=== PATIENT | male | born 1950 | race Caucasian/White ===

== ENCOUNTER → 2017-09-05 | Outpatient (REF) | payer MEDICARE, OTHER | LOC: ZZSENDIN 12:00 | PROVIDERS: ATTEND Urology | DX: C61 Malignant neoplasm of prostate (principal) | CPT/HCPCS: 88305; 88344 ==

== ENCOUNTER 2017-12-24 07:49 | Outpatient (RCR) | payer MEDICARE, OTHER ==
--- NOTE | 2017-10-09 18:24 | ONCOLOGY CONSULTATION ---
EVENT DATE: October 09, 2017 PRIMARY SITE AND HISTOPATHOLOGY Adenocarcinoma of the prostate Radha 3+3=6 carcinoma and Kanaranzi 2+3=5 adenocarcinoma appreciated from the left lateral apex and left apex biopsies ( two of 12 positive core biopsies). Pre-biopsy PSA 7.4 ng/mL drawn on June. STAGE Pending. HISTORY OF PRESENT ILLNESS This is a pleasant 66-year-old gentleman who was referred to me by Dr. Ye to discuss treatment options for recently diagnosed prostate carcinoma. The patient has an appointment at the end of the week to follow up with Dr. Ye to make a final determination as to which option he will pursue. Patient moved to [place] approximately two years ago from [place]. He is a retired building construction foreman. He recently had an initial appointment with Dr. Rodriguez and during that evaluation a PSA was drawn which was elevated at 7.4 ng /mL. This was in mid June. Dr. Ye was able to obtain a prior PSA when the patient was living in [place] through a phone call, and the patient's PSA was 2.0 on October 06, 2014. Therefore this was a significant elevation. The patient was advised to undergo prostate biopsy, which was performed with ultrasound guidance on September 05, 2017. Two positive core biopsies were obtained from the left apex at Radha 5 and Radha 6. Prostate measured 42 mm in height by 48 mm in width x 45 mm in length. Prostate volume is 47 cc. Patient states his voiding function has been stable. He denies any dysuria. He generally does not get up at night. Good control of urination during the day. Patient denies any bone pain. Patient states he is otherwise healthy and generally has not needed to see physicians for anything specifically. He informs me that he would like to discuss radiation therapy options with me today. He has already discussed surgery options, radiation briefly and active surveillance with Dr. Ye, and the pros and cons thereof. He has interest in discussing external beam radiotherapy or prostate brachytherapy as to details , outcomes and side effects. PAST MEDICAL HISTORY Glaucoma. PAST SURGICAL HISTORY Left-sided hernia repair in 2000. FAMILY HISTORY No family history of prostate carcinoma. Negative for carcinoma. CURRENT MEDICATIONS 1. Atenolol one drop b.i.d. 2. Lumigan eyedrops q.day. SOCIAL HISTORY Patient is . He has five children, ages 35-47. Retired building construction foreman. States he has one drink a day, does not smoke. REVIEW OF SYSTEMS No recent weight loss. No cardiovascular, respiratory or GI complaints. AUA score is low at 6. Denies any ROOM CLEANER or bone or muscular issues. PHYSICAL EXAMINATION GENERAL: A pleasant 66-year-old male of tall build. VITAL SIGNS: Height 75 inches, weight 234. BP 170/106, pulse 76, respirations 16, temperature 98.8. HEENT: Exam is unremarkable. LUNGS: Clear bilaterally. HEART: Sounds regular. No audible murmur. ABDOMEN: Soft. No gross organomegaly, mass or tenderness. RECTAL: Exam is deferred since this was performed within the last four weeks. EXTREMITIES: Reveal no edema or cyanosis. NEUROLOGIC: Exam is intact. IMPRESSION Radha 6 adenocarcinoma of the prostate in two of 12 core biopsies. This is in the background of a PSA with doubling time of under one year (rise up from 2.0 to 7.4 in a three-year time frame). PLAN I reviewed therapeutic options with the patient at his request. We specifically went through the exact details on simulation and daily external beam radiotherapy with cone-beam IMRT treatment delivery. This would involve radiation delivery of 72 Gy in 42 fractions with field reductions at 50 Gy and 60 Gy. The alternative treatment option which was reviewed in detail with the patient was the prostate brachytherapy program. That procedure involves two ultrasounds. First ultrasound is done in the OR approximately three to four weeks before the actual procedure. The location of the urethra is noted and imaging is obtained to 5 mm increments through the prostate for radiation planing on a three dimensional system. Palladium-103 seeds would then be placed jointly under direct fluoroscopic and ultrasound guidance with Dr. Ye in an outpatient location. This is typically performed at the hospital. In either situation the patient can experience increased urinary symptoms such as frequency or urgency. Other symptoms include temporary dysuria. Bowel complication such as rectal bleeding is generally 3% or lower, and most frequently related to small telangectasias which may or may not form following treatment. The probability of tumor control would be on the order of 88% to 95 % in five years, would drop another 5% to 10% by 10 years from available literature. The patient stated he would like to think about his options further, and will contact our office next week with his final decision. I told him he could essentially not make a wrong decision in this decision tree. In my opinion he would not need hormone therapy, and if treatment is successful, the PSA should fall to subnormal levels within 12 months. If the patient elects for radiation external oakley radiotherapy, he will need a diagnostic and treatment planning CT scan approximately 10 days prior to starting therapy. Consultation took approximately 90 minutes today, and all questions were answered to the patient's satisfaction. Thank you for the referral and opportunity to discuss therapeutic options with Mr. Nash today. (10/23/17 Patient opted to proceed with primary XRT; images imported for IMRT planning- RT) GAGE
[2017-10-18 11:59] VITALS: BP 163/105
[2017-10-18 12:07] LABS: PLATELET COUNT, AUTOMATED 271 K/uL (150-450)
--- NOTE | 2017-10-18 14:55 | RADIOLOGY IMAGING REPORT ---
FACILITY: [facility] PATIENT NAME: Nickolas Nash : 1950 MR: [id number] V: [id number] EXAM DATE: ORDERING PHYSICIAN: BLOSSOM SOLO TECHNOLOGIST: [place] [facility] [place] Nickolas Nash : 1950 Visit/Account:[id number] Date of Sevice: 10/18/2017 ABDOMEN/PELVIS W/WO CONTRAST HISTORY: Prostate cancer, placement of therapy calloway TECHNIQUE: Axial images acquired through the abdomen/pelvis both with and without IV contrast.. Tony nal and sagittal reformatting also performed. Dose Lowering Technique One of the following dose optimization techniques was utilized in the performance of this exam: Autom ated exposure control; adjustment of the mA and/or kV according to the patient's size; or use of an i terative reconstruction technique. Specific details can be referenced in the facility's radiology C T exam operational policy. CONTRAST: 75 mL Isovue-370 COMPARISON: None. FINDINGS: Visualized lung bases: Negative. Hepatobiliary: Gallbladder is partially contracted which could be related to a recent meal Spleen: Negative. Adrenals: Negative. Pancreas: There is a 1.8 x 1.5 cm irregular hypoattenuating region at the junction of the distal bod y and tail of the pancreas Kidneys ureters and bladder: Negative. Genitalia: Prostate gland is enlarged heterogeneous and impinges upon the floor the urinary bladder GI: There is a large hiatal hernia containing much of the stomach . There is diverticulosis left-si ded colon although no CT evidence of acute diverticulitis Vessels/spaces/nodes: Negative Bones/soft tissues: There are sclerotic densities seen in the right iliac bone, right hip and left i schium. These Could represent bone islands although given the clinical history of prostate cancer os seous metastases not totally excluded Additional findings: None pertinent. IMPRESSION: There is scar density seen in the right iliac bone, right hip and left issue. These could represent bone islands although osseous metastases not totally excluded. If of concern bone scan may be helpfu l. There is a 1.8 x 1.5 cm hypoattenuating region at the junction of the distal body and tail the pancre as. Although this could represent a fatty cleft a pancreatic mass is not ruled out. MR of the pancr eas with and without contrast may be helpful Large hiatal hernia containing much of the stomach Diverticulosis left-sided colon although no CT evidence of acute diverticulitis Report Dictated By: Inna Longo MD at 10/18/2017 2:35 PM Report E-Signed By: Inna Longo MD at 10/18/2017 2:50 PM WSN:[email or web address]
[2017-10-30 08:51] VITALS: BP 173/102
--- NOTE | 2017-11-02 15:46 | RADIOLOGY IMAGING REPORT ---
FACILITY: [facility] [place] PATIENT NAME: Nickolas Nash : 1950 MR: [id number] V: [id number] EXAM DATE: ORDERING PHYSICIAN: BLOSSOM SOLO TECHNOLOGIST: Location: [facility] - [place] Patient: Nickolas Nash : 1950 Visit/Account:[id number] Date of Sevice: 10/30/2017 Exam type: ORBITS FOREIGN BODY 1 VIEW History: Pre-MRI screening Comparison: None. Findings: No radiopaque metallic foreign bodies project over the orbits IMPRESSION: 1. No radiopaque metallic foreign bodies project over the orbits Report Dictated By: Inna Longo MD at 10/30/2017 9:02 AM Report E-Signed By: Inna Longo MD at 10/30/2017 9:03 AM WSN:[email or web address]
--- NOTE | 2017-11-02 15:47 | RADIOLOGY IMAGING REPORT ---
[place] [facility] [place] NAME: Nickolas Nash : 1950 MR: [id number] V: [id number] EXAM DATE: ORDERING PHYSICIAN: BLOSSOM SOLO TECHNOLOGIST: Location: [facility] - [place] Patient: Nickolas Nash : 1950 Visit/Account:[id number] Date of Sevice: 10/30/2017 EXAMINATION: MRI abdomen without IV contrast MRI abdomen with IV contrast MRCP 10/30/2017 9:00 AM HISTORY: Possible pancreatic mass. History of prostate cancer. TECHNIQUE: Multiplanar multisequence imaging of the abdomen was performed including thin slice heavil y T2-weighted MRCP sequencing. 3-D imaging was performed according to protocols developed by the rad iologists and the facility radiology staff. Joint Cutter images are stored on PACS. Contrast: 15 mL of IV MultiHance. COMPARISON STUDIES: CT abdomen and pelvis 10/18/2017 FINDINGS: Gallbladder bile ducts: Phrygian cap at the tip of the gallbladder. No visible cholelithiasis. CBD is just over 2 mm. No focal stricture or irregularity. Liver: Negative Pancreas: 4 mm cystic focus along the posterior inferior aspect of the pancreatic neck. Pancreatic d uct is not dilated. The pancreas at the juncture of body and tail has an unremarkable MR appearance without discrete focal mass or inflammation. There is no edema and peripancreatic fat. Spleen: Incidental small anteroinferior accessory splenule. Adjacent splenule or lobulated margin of the pancreas. Adrenal glands: negative Kidneys / retroperitoneum: negative Bowel / peritoneum / mesenteries: Large hiatal hernia. Vessels: negative Musculoskeletal / Body wall: negative Lymph node assessment: negative Lower chest: negative IMPRESSION: 1. Area of concern in the pancreas at the juncture of the body and tail has an unremarkable MR appea mary ann without discrete mass. There is a subcentimeter cystic focus along the inferior aspect of the pancreatic neck. A benign etiology would be favored but one-year follow-up is recommended to exclude cystic neoplasm. 2. No significant acute finding otherwise. I called report to DEEPA GUZMAN at 10/30/2017 11:42 AM. Report Dictated By: Michael Garcia MD at 10/30/2017 11:10 AM Report E-Signed By: Michael Garcia MD at 10/30/2017 11:42 AM WSN:[email or web address]
[~2017-12-24 07:49] MED LIST: DEXTROSE 5%(*) 100 ML BAG 100 ML IVPB PRN; IOPAMIDOL 76% 75 ML INFUS BTL 75 ML ONE; LIDOCAINE/SOD BICARB 8.4% SYR ID PRN; NS(*) 0.9% 100 ML BAG 100 ML IVPB PRN
[2017-12-24 16:57] VITALS: BP 170/100
== END 2018-01-06 ==
LOC: SPU 07:49
PROVIDERS: ATTEND Radiology Radiation Oncology
DX: Z51.0 Encounter for antineoplastic radiation therapy (principal); C61 Malignant neoplasm of prostate; K44.9 Diaphragmatic hernia without obstruction or gangrene; K57.30 Diverticulosis of large intestine without perforation or abscess without bleeding
CPT/HCPCS: 36415; 74178; 77280; 77290; 77300; 77301; 77336; 77338; 77385; 84153; 85025; G0463; Q9967; 70030; 74183; 82040; 82247; 82310; 82374; 82435; 82565; 82947; 84075; 84132; 84155; 84295; 84450; 84460; 84520; 99203; 99211; A9577; J7050

== ENCOUNTER 2017-12-27 08:25 | Outpatient (RCR) | payer MEDICARE, OTHER | END 2018-01-17 14:14 | disposition home or self-care (01) | LOC: RAON 08:25 | PROVIDERS: ATTEND Radiology Radiation Oncology | DX: Z51.0 Encounter for antineoplastic radiation therapy (principal); C61 Malignant neoplasm of prostate | CPT/HCPCS: 77280; 77336; 77385 ==

== ENCOUNTER 2018-03-19 09:54 | Outpatient (RCR) | payer MEDICARE, OTHER ==
[2018-03-18 10:34] VITALS: BP 156/89
[2018-03-18 10:37] LABS: PLATELET COUNT, AUTOMATED 245 K/uL (150-450)
== END 2018-05-15 12:50 | disposition home or self-care (01) ==
LOC: RAON 09:54
PROVIDERS: ATTEND Radiology Radiation Oncology
DX: C61 Malignant neoplasm of prostate (principal); H40.9 Unspecified glaucoma; Z92.3 Personal history of irradiation
CPT/HCPCS: 36415; 84153; 85025; G0463; 82040; 82247; 82310; 82374; 82435; 82565; 82947; 84075; 84132; 84155; 84295; 84450; 84460; 84520; 99212

== ENCOUNTER → 2018-07-23 | Outpatient (CLI) | payer MEDICARE, OTHER ==
[2018-07-23 10:20] VITALS: BP 188/95
== END ==
LOC: SPU 10:15
PROVIDERS: ATTEND Urology
DX: C61 Malignant neoplasm of prostate (principal); H40.9 Unspecified glaucoma; Z92.3 Personal history of irradiation
CPT/HCPCS: 36415; 84153

== ENCOUNTER 2018-08-20 08:56 | Outpatient (RCR) | payer MEDICARE, OTHER ==
[2018-08-20 09:07] VITALS: BP 176/80
[2018-08-20] MEDS ORDERED: BIMA2.5D5 OP (09:11)
--- NOTE | 2018-08-20 13:27 | ONCOLOGY FOLLOW UP NOTE ---
EVENT DATE: August 20, 2018 REASON FOR VISIT Oncology surveillance, known history of prostate carcinoma treated with external beam radiation therapy, completed 12/27/2017. No ADT. ONCOLOGY DIAGNOSIS 1. Edgar 5 and Edgar 6 tumor, occupying 2 of 12 core biopsies, 5% to 10% of the total core volume. Pre-biopsy PSA of 7.4 ng/mL. Ultrasound biopsy diagnosis date September 05, 2017. 2. External beam radiation therapy to 7200 cGy in 40 fractions delivered October 31, 2017 to December 22, 2017 with IMRT. INTERVAL HISTORY/HISTORY OF PRESENT ILLNESS Patient clinically is doing well. No voiding issues. Nocturia x1, excellent control. He does drink a fair amount of coffee in the morning. PSA continues to fall post-treatment. Three months ago, the PSA dropped to 2.3 ng/mL and this morning PSA has dropped to 1.9 ng/mL. Patient has been [facility] in [place] since his last appointment. He does have some macular degeneration in one eye apparently. MEDICATIONS Lumigan eyedrops. PAST MEDICAL HISTORY 1. Prostate carcinoma. 2. Glaucoma. PAST SURGICAL HISTORY 1. Prostate biopsy. 2. Hernia repair. ALLERGIES None. SOCIAL HISTORY Last colonoscopy six years ago in [place]. One drink per day. He takes classes at the [employer] for fun. Walks one mile a day. with five children. Retired. REVIEW OF SYSTEMS Comprehensive review of systems completely negative. Minor stiffness in the morning in the back, unchanged from prior visits. PHYSICAL EXAMINATION GENERAL: Pleasant 67-year-old gentleman of slightly tall build. VITAL SIGNS: Weight 231, BP 176/80, pulse 75, respirations 16, O2 sat 94% on room air. NECK: No lymphadenopathy. LUNGS: Clear bilaterally. CARDIOVASCULAR: Heart sounds regular. No audible murmur. ABDOMEN: Soft. No gross organomegaly. RECTAL: Deferred since PSA continues to fall and he is not over a year out. EXTREMITIES: Trace edema bilaterally. NEUROLOGIC: Intact. IMPRESSION/PLAN Patient has reached the target range of under 2 ng/mL following radiation therapy for favorable intermediate risk prostate carcinoma. So far, I am pleased with his course to date. He will follow up with Dr. Ye in three months with PSA. Return here in six months with PSA. I told him once the PSA stabilizes we can then go to an annual followup visit at each visit. He will follow up with Dr. Haeberle for any p.r.n. medical needs and was reminded to have a colonoscopy q. five years. He does have a history of polyps. Visit was completed in 35 minutes this morning and all questions answered to his satisfaction. GAGE
== END 2018-10-25 12:57 | disposition home or self-care (01) ==
LOC: RAON 08:56
PROVIDERS: ATTEND Radiology Radiation Oncology
DX: C61 Malignant neoplasm of prostate (principal); Z92.3 Personal history of irradiation
CPT/HCPCS: 99212

== ENCOUNTER → 2018-11-20 | Outpatient (CLI) | payer MEDICARE, OTHER ==
[~2018-11-20] MED LIST changes: +BIMA2.5D5 OP; -DEXTROSE 5%(*) 100 ML BAG 100 ML IVPB PRN; -IOPAMIDOL 76% 75 ML INFUS BTL 75 ML ONE; -LIDOCAINE/SOD BICARB 8.4% SYR ID PRN; -NS(*) 0.9% 100 ML BAG 100 ML IVPB PRN
== END ==
LOC: LAB 10:04
PROVIDERS: ATTEND Urology
DX: C61 Malignant neoplasm of prostate (principal)
CPT/HCPCS: 36415; 84153